=== PATIENT | female | born 2000 | race Caucasian/White ===

== ENCOUNTER 2024-08-04 22:01 | Emergency (ER) | payer BC, MEDICAID, SELFPAY ==
[2024-08-04 22:09] VITALS: BP 159/97; PULSE 83; RESP 18; TEMP 36.9; O2SAT 96; BMI 28.5
--- NOTE | 2024-08-04 22:22 | XRR_ITS ---
PROCEDURE INFORMATION: Exam: XR Chest Exam date and time: 08/04/2024 10:33 PM Age: 24 years old Clinical indication: Cough TECHNIQUE: Imaging protocol: Radiologic exam of the chest. Views: 1 view. COMPARISON: No relevant prior studies available. FINDINGS: Lungs: Unremarkable. No consolidation. Pleural spaces: Unremarkable. No pleural effusion. No pneumothorax. Heart/Mediastinum: Unremarkable. No cardiomegaly. Bones/joints: Mild curvature of the thoracic spine convex to the right. XR/XR chest 1V portable [id number] IMPRESSION: No acute cardiopulmonary process.
--- NOTE | 2024-08-04 22:23 | W.ED.URI ---
HPI - URI/Sore Throat General: Chief Complaint: Upper Respiratory Infection Stated Complaint: SOB Time Seen by Provider: 08/04/24 22:18 History of Present Illness: Patient presents to the ER with complaints of nonproductive cough congestion wheezing in does not feel good overall. This all started about 3 weeks ago. Patient went to her PCP about a week ago was put on doxycycline and a prednisone taper which she took she did not get any better so she went back to them today and saw another provider and I said she has allergies and they put her on some allergy medicine and Flonase. Patient has not been sneezing and does not think she has allergies so she decided to come in for second opinion. Patient said that she is beginning to get worse and rundown. Patient denies any fever or chills or sick contacts. Related Data Allergies Allergy/AdvReac Type Severity Reaction Status Date / Time No Known Allergies Allergy Verified 08/04/24 22:12 Review of Systems General: Reports: 10 or more systems reviewed and unremarkable except in HPI and below Physical Exam Const: COMMON NORMALS: no acute distress, average body habitus, patient oriented x3, no limitations, healthy appearing, alert and well nourished HENMT: COMMON NORMALS: normocephalic, atraumatic, hearing grossly normal bilaterally, external ears normal, Normal external nose present and moist oral mucous membranes HEAD & SCALP: normocephalic and atraumatic NOSE: Normal external nose present EXTERNAL EAR: Yes external ears normal Neck/C-Spine: COMMON NORMALS: full ROM, no lymphadenopathy, supple, no meningeal signs and no JVD Chest: COMMONS NORMALS: normal inspection of the chest and normal palpation of entire chest wall Resp: COMMON NORMALS: normal respiratory effort, No retractions, No use of accessory muscles and clear to auscultation bilaterally AUSCULTATION: clear to auscultation bilaterally Cardio: COMMON NORMALS: no JVD, regular rate, regular rhythm, S1 normal heart sound present, S2 normal heart sound present, No gallops present (Cardio), No clicks present (Cardio), No murmurs present (Cardio) and No rub (Cardio) RATE: regular rate RHYTHM: regular rhythm HEART SOUNDS: S1 normal heart sound present and S2 normal heart sound present Neuro: COMMON NORMALS: patient oriented x3 SENSORIUM/ORIENTATION: Yes alert MENINGEAL SIGNS: Yes no meningeal signs Course Vital Signs: Vital signs: Vital Signs Temperature 98.5 F 08/04/24 22:09 Pulse Rate 59 L 08/05/24 00:12 Respiratory Rate 16 08/05/24 00:12 Blood Pressure 117/72 08/05/24 00:12 Pulse Oximetry 98 08/05/24 00:12 Oxygen Delivery Me thod Room Air, Nasal C annula 08/05/24 00:12 MDM - URI/Sore Throat Medical Decision Making Patient had chest x-ray that was negative and respiratory panel that showed she was positive for parainfluenza type I, results of these was discussed with the patient. Patient will be discharged. Differential Diagnosis Likely upper respiratory infection Medical Records I reviewed the patient's medical records. Lab Data I reviewed the patient's lab results. Radiology Impressions Chest X-Ray 08/04/24 22:22 IMPRESSION: No acute cardiopulmonary process. Laboratory Results Adenovirus (PCR) Not detected (NOT DETECT) 08/04/24 22:25 C. pneumoniae DNA (PCR) Not detected (NOT DETECT) 08/04/24 22:25 Coronavirus 229E (PCR) Not detected (NOT DETECT) 08/04/24 22:25 Human Metapneumovir PCR Not detected (NOT DETECT) 08/04/24 22:25 Influenza A (H1) PCR Not detected (NOT DETECT) 08/04/24 22:25 Influ A (H1/09) PCR Not detected (NOT DETECT) 08/04/24 22:25 Influenza A (H3) PCR Not detected (NOT DETECT) 08/04/24 22:25 Influenza Type A (PCR) Not detected (NOT DETECT) 08/04/24 22:25 Influenza Type B (PCR) Not detected (NOT DETECT) 08/04/24 22:25 M. pneumoniae (PCR) Not detected (NOT DETECT) 08/04/24 22:25 Parainfluenza 1 (PCR) Detected (NOT DETECT) A 08/04/24 22:25 Parainfluenza 2 (PCR) Not detected (NOT DETECT) 08/04/24 22:25 Parainfluenza 3 (PCR) Not detected (NOT DETECT) 08/04/24 22:25 Parainfluenza 4 (PCR) Not detected (NOT DETECT) 08/04/24 22:25 RSV Type A (PCR) Not detected (NOT DETECT) 08/04/24 22:25 RSV Type B (PCR) Not detected (NOT DETECT) 08/04/24 22:25 Entero/Rhino (PCR) Not detected (NOT DETECT) 08/04/24 22:25 SARS-CoV-2 (PCR) Not detected (NOT DETECT) 08/04/24 22:25 All radiology interpretation(s) finalized by discharge Discharge Plan Discharge Patient Disposition: Home Clinical Impression: Upper respiratory infection Qualifiers: URI type: unspecified URI Qualified Code(s): J06.9 - Acute upper respiratory infection, unspecified Condition: Stable Discharge Orders: Discharge ED (Routine); Ordered 08/05/24 Ordered By: Trey Marks Referrals: Brigitte Leal FNP [Primary Care Provider] - 1 week Patient Instructions: Upper Respiratory Infection (DC) Activity Restrictions/Additional Instructions: Thank you for choosing [facility] for your healthcare needs today. Please realize that you were seen in the emergency department and that we are providing you with an emergency medical screening exam and this may not be a complete and all exclusive of all testing and/or medical workup we may need to determine your element or severity of your illness. It is very important that you follow-up as instructed with your primary care provider or specialist for the additional evaluation and to discuss your medical treatment plan. You may return to the emergency department should you have concerns or if your condition changes or worsens in any way. 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
[2024-08-04 22:26] VITALS: BP 138/95; RESP 18; O2SAT 100
[2024-08-05 00:12] VITALS: BP 117/72; PULSE 59; RESP 16; O2SAT 98
[2024-08-05 00:17] LABS: Adenovirus Not Detected (NOT DETECT); Chlamydia Pneumoniae Not Detected (NOT DETECT); Coronavirus 229E,HKU1,NL63,OC4 Not Detected (NOT DETECT); Human Metapneumovirus Not Detected (NOT DETECT); Human Rhinovirus/Enterovirus Not Detected (NOT DETECT); Influenza A Not Detected (NOT DETECT); Influenza A H1 Not Detected (NOT DETECT); Influenza A H1-2009 Not Detected (NOT DETECT); Influenza A H3 Not Detected (NOT DETECT); Influenza B Not Detected (NOT DETECT); Mycoplasma Pneumoniae Not Detected (NOT DETECT); Parainfluenza Virus Type 1 Detected (NOT DETECT); Parainfluenza Virus Type 2 Not Detected (NOT DETECT); Parainfluenza Virus Type 3 Not Detected (NOT DETECT); Parainfluenza Virus Type 4 Not Detected (NOT DETECT); Respiratory Syncytial Virus A Not Detected (NOT DETECT); Respiratory Syncytial Virus B Not Detected (NOT DETECT); SARS-COV-2 Not Detected (NOT DETECT)
[2024-08-05 01:52] VITALS: BP 104/57; PULSE 58; RESP 16; O2SAT 98
== END 2024-08-05 01:53 | disposition home or self-care (01) ==
PROVIDERS: Emergency Provider Emergency Medicine; PCP Nurse Practitioner Family
DX: J06.9 Acute upper respiratory infection, unspecified (principal); Z11.52 Encounter for screening for COVID-19
CPT/HCPCS: 71045; 87486; 87581; 87633; 99284